=== PATIENT | female | born 1945 | race Caucasian/White ===

== ENCOUNTER 2020-07-27 06:49 | Day surgery (SDC) | payer MEDICARE, OTHER ==
[2020-07-27] MEDS ORDERED: BETADINE 5% OPHTHALMIC 30 ML OP ONE (07:00)
[2020-07-27] MEDS ORDERED: cefUROXime sodium 0.005 GM in Sodium Chloride Flush 30 ML*** 0.5 ML IJ SCH (07:00)
[2020-07-27] MEDS ORDERED: TETRACAINE 0.5% STERI-UNIT SOL OP ONE ×2 (07:00)
[2020-07-27] MEDS ORDERED: NON-FORMULARY ITEM OP ONE (07:00)
[2020-07-27] MEDS ORDERED: Ak-Dilate OPHTHALMIC*** 1.065 ML, Cyclogyl 1% OPHTH SOL 5 ML 1.065 ML, GATIFLOXACIN 0.5... OP ONE ×4 (07:00)
[2020-07-27] MEDS ORDERED: Lactated Ringers 1,000 ML IV SCH (07:00)
[2020-07-27] MEDS ORDERED: Lactated Ringers 1,000 ML IV ONE (07:18)
[2020-07-27 07:37] VITALS: O2SAT 96
[2020-07-27] MEDS ORDERED: Zofran 4 MG/2 ML VIAL IV PRN (09:00)
[2020-07-27] MEDS ORDERED: ACETAZOLAMIDE 250 MG TABLET PO ONE (09:00)
[2020-07-27 09:58] VITALS: PULSE 63
[2020-07-27] MEDS ORDERED: Epinephrine Preservative Free 1 MG/ML INTRAOP ONE (10:00)
[2020-07-27] MEDS ORDERED: LIDOCAINE HCL 1% 50 MG/5 ML VL PF IJ ONE (10:00)
[2020-07-27 10:17] VITALS: BP 126/64
== END 2020-07-27 10:32 | disposition home or self-care (01) ==
LOC: SDC 06:49
PROVIDERS: ATTEND Ophthalmology
DX: H25.811 Combined forms of age-related cataract, right eye (principal); I10 Essential (primary) hypertension; E78.00 Pure hypercholesterolemia, unspecified; F41.9 Anxiety disorder, unspecified; Z79.899 Other long term (current) drug therapy
CPT/HCPCS: 99100; C1780; J0171; J2001; A9270-GY

== ENCOUNTER 2022-04-18 11:27 | Observation (INO) | payer MEDICARE, OTHER ==
[2022-04-18 13:32] LABS: Hematocrit 42.3 % (35-47); Mean Cell Volume 87.6 fL (78-100); Mean Corpuscular Hgb Concent. 33.1 g/dL (32-36); Mean Platelet Volume 8.2 fL (7.5-11.0); Platelet Count 193 x10^3/uL (150-450); Red Blood Count 4.83 x10^6/uL (4.1-5.4); Red Cell Distribution Width 12.4 % (11.5-14.0); White Blood Count 7.2 x10^3/uL (4.0-10.5)
[2022-04-18 13:47] LABS: ALBUMIN 4.3 g/dL (3.5-5.0); ANION GAP 11.9 MEQ/L (5-15); BILIRUBIN,TOTAL 1.3 mg/dL (0.2-1.3); Calcium 8.3 mg/dL (8.4-10.2); Creatinine 1 1.12 mg/dL (0.52-1.04); EST GLOMERULAR FILTRATION RATE 50.4 ML/MIN; Potassium 4.3 mmol/L (3.5-5.1); Total Protein 7.1 g/dL (6.3-8.2)
[2022-04-18 13:55] LABS: Erythrocyte Sedimentation Rate 21 mm/hr (0-20)
[2022-04-18] MEDS: Sodium Chloride 0.9% 1000 ML 1,000 ML IV SCH ×2 (14:04→21:53)
[2022-04-18 14:16] LABS: INFLUENZA A NEGATIVE (NEGATIVE); INFLUENZA B NEGATIVE (NEGATIVE); RESPIRATORY SYNCTIAL VIRUS NEGATIVE (Negative); SARS-CoV-2 Xpert Express NEGATIVE (NEGATIVE)
--- NOTE | 2022-04-18 15:39 | XRAY ---
Indication: Abdomen pain and loss of appetite. Multiple contiguous axial images obtained through the abdomen and pelvis prior to and following 80 cc Isovue 370 contrast as ordered. Comparison: October 06, 2011 Lung bases again demonstrates mild bibasilar subsegmental atelectasis/scarring. No infiltrate or effusion. Heart not enlarged with increasing small left posterior pericardial effusion/thickening. Noncontrasted images demonstrates new nonobstructing right renal punctate calculus and splenic calcified granuloma. No other visceral calcifications/calculi. Noncontrasted stomach and bowel loops nonobstructed. Enlarging descending duodenal diverticulum measuring 4.3 cm. There remains scattered descending and sigmoid diverticulosis more than before. Appendectomy, cholecystectomy, and hysterectomy. No free fluid/air. Postcontrast images demonstrates normal visceral enhancement and renal excretion. Remaining liver, pancreas, spleen, adrenal glands, kidneys, ureters, and bladder are unremarkable. Increasing mild scattered aortoiliac calcifications. No AAA or pathologic retroperitoneal lymphadenopathy. Osseous structures intact again with osteopenia and mild degenerative changes both hips. Again minimal double curvature scoliosis. No ventral or inguinal hernias. Impression: 1. New nonobstructing right renal punctate calculus and splenic calcified granuloma. 2. Increasing small pericardial effusion/thickening better evaluated with echocardiogram if clinically warranted. 3. Again chronic findings including duodenal diverticulum, colonic diverticulosis, arteriosclerotic disease, and chronic bony findings. 4. Remaining CT abdomen/pelvis with and without contrast exam is negative.
[2022-04-18] MEDS ORDERED: DENOSUMAB SQ SCH (17:30)
[2022-04-18] MEDS ORDERED: MORPHINE SULFATE 4 MG INJ IV PRN (17:42)
[2022-04-18] MEDS ORDERED: Zanaflex 4 MG PO SCH (18:00)
[2022-04-18] MEDS ORDERED: NON-FORMULARY ITEM PO SCH (18:00)
[2022-04-18] MEDS ORDERED: MORPHINE SULFATE 2 MG INJ IV PRN (19:37)
[2022-04-18] MEDS: Neurontin PO SCH (21:51)
[2022-04-18] MEDS: xanAX 0.5 MG PO SCH (21:51)
[2022-04-18] MEDS: NORVASC 5 MG PO SCH (21:51)
[2022-04-18] MEDS: COREG 12.5 MG PO SCH (21:52)
[2022-04-18] MEDS ORDERED: NON-FORMULARY ITEM (Carvedilol [Coreg] 25 MG Tablet) PO SCH (22:00)
[2022-04-19] MEDS: Sodium Chloride 0.9% 1000 ML 1,000 ML IV SCH ×2 (03:12→04:26)
[2022-04-19 07:32] VITALS: O2SAT 94
[2022-04-19] MEDS: Zocor 10MG PO SCH ×2 (09:34→09:35)
[2022-04-19] MEDS: Neurontin PO SCH (09:35)
[2022-04-19] MEDS: COREG 12.5 MG PO SCH (09:35)
[2022-04-19] MEDS: xanAX 0.5 MG PO SCH (09:35)
[2022-04-19] MEDS: NORVASC 5 MG PO SCH (09:36)
[2022-04-19] MEDS ORDERED: NON-FORMULARY ITEM (Lovastatin [Lovastatin] 20 MG Tablet) PO SCH (10:00)
[2022-04-19] MEDS ORDERED: NON-FORMULARY ITEM (Omeprazole [Omeprazole] 40 MG Capsule.Dr) PO SCH (10:00)
[2022-04-19] MEDS ORDERED: Protonix 40MG Tablet PO SCH (10:00)
[2022-04-19] MEDS ORDERED: NON-FORMULARY ITEM (Hydroxychloroquine Sulfate [Plaquenil] 200 MG Tablet) PO SCH (10:00)
--- NOTE | 2022-04-19 10:42 | XRAY ---
Indication: Pain. Hysterectomy. Two-dimensional transabdominal pelvic sonogram performed. Comparison: None Uterus and ovaries are surgically absent. No suspicious solid/cystic pelvic mass or free fluid.
[2022-04-19 12:14] VITALS: BP 121/60; PULSE 64
--- NOTE | 2022-04-19 13:01 | PCM.SSS ---
History of Present Illness - Chief Complaint Chief Complaint: ABDOMINAL PAIN for 3 days History of Present Illness: is a 77 year old female started having abdominal pain in left lower cole drant associated with nausea for 3 days - Review of Systems Constitutional: No Fever, No Chills Eyes: No Symptoms Ears, Nose, & Throat: No Symptoms Respiratory: No Cough, No Short Of Breath Cardiac: No Chest Pain, No Edema, No Syncope Abdominal/Gastrointestinal: Abdominal Pain, Nausea, No Vomiting, No Diarrhea Genitourinary Symptoms: No Dysuria Musculoskeletal: No Back Pain, No Neck Pain Skin: No Rash Neurological: No Dizziness, No Focal Weakness, No Sensory Changes Psychological: No Symptoms Endocrine: No Symptoms Hematologic/Lymphatic: No Symptoms Immunological/Allergic: No Symptoms Medications & Allergies Home Medications: Home Medication List ALPRAZolam [Xanax] 0.5 mg PO BID 07/14/20 [History Confirmed 04/18/22] Amlodipine Besylate [Norvasc] 5 mg PO BID 07/14/20 [History Confirmed 04/18/22] Denosumab 60 mg [Prolia 60 mg Injection] 60 mg SQ UD 07/14/20 [History Confirmed 04/18/22] Gabapentin [Neurontin ] 100 mg PO TID 07/14/20 [History Confirmed 04/18/22] Hydroxychloroquine Sulfate [Plaquenil] 200 mg PO DAILY 07/14/20 [History Confirmed 04/18/22] Lovastatin 10 mg PO DAILY 07/14/20 [History Confirmed 04/18/22] Omeprazole 40 mg PO DAILY 07/14/20 [History Confirmed 04/18/22] carvediloL [Coreg] 25 mg PO BID 07/14/20 [History Confirmed 04/18/22] ALPRAZolam 0.25 MG [xanAX 0.25 MG] 0.5 mg PO BID 04/18/22 [History Confirmed 04/18/22] Tizanidine HCl 4 mg [Zanaflex 4 MG] 4 mg PO DAILY 04/18/22 [History Confirmed 04/18/22] Dicyclomine HCl 20 mg [Bentyl 20 mg] 10 mg PO TID #30 tablet 04/19/22 [Rx] Psyllium Packet [Metamucil PACKET] 1 each PO DAILY #30 packet 04/19/22 [Rx] Allergies/Adverse Reactions: Allergies Allergy/AdvReac Type Severity Reaction Status Date / Time No Known Drug Allergies Allergy Verified 07/27/20 07:19 - Past Medical History Past Medical History: Yes Neurological History: No Pertinent History ENT History: Cataracts Cardiac History: High Cholesterol, Hypertension Respiratory History: No Pertinent History Endocrine Medical History: No Pertinent History Musculoskelatal History: Arthritis, Osteoarthritis, Osteoporosis GI Medical History: No Pertinent History History: No Pertinent History Pyscho-Social History: Anxiety Reproductive Disorders: No Pertinent History - Female History Are you now?: No - Past Surgical History Past Surgical History: Yes Neuro Surgical History: No Pertinent History Cardiac History: Cardiac Catheterization Respiratory Surgery: No Pertinent History GI Surgical History: Cholecystectomy Genitourinary Surgical Hx: No Pertinent History Musculskeletal Surgical Hx: No Pertinent History, Other Female Surgical History: Hysterectomy Other Surgical History: jaya in right wrist - Social History Smoking Status: Never smoker Exposure to second hand smoke: No Alcohol: Weekly Drug Use: none - Physical Exam Vital Signs: Vital Signs - 24 hr Temp Pulse Resp BP Pulse Ox 04/19/22 12:00 97.5 F 64 17 121/60 94 L 04/19/22 07:28 97.7 F 67 16 120/58 94 L 04/19/22 04:00 97.9 F 66 16 113/56 93 L 04/19/22 00:00 81 16 122/58 95 04/18/22 16:08 98.3 F 81 16 122/58 95 General Appearance: no apparent distress, alert Neurologic Exam: alert, oriented x 3, cooperative, normal mood/affect, nml cerebellar function, nml station & gait, sensation nml, No motor deficits Eye Exam: PERRL/EOMI, eyes nml inspection Ears, Nose, Throat Exam: normal ENT inspection, TMs normal, pharynx normal, m oist mucous membranes Neck Exam: normal inspection, non-tender, supple, full range of motion Respiratory Exam: normal breath sounds, lungs clear, No respiratory distress Cardiovascular Exam: regular rate/rhythm, normal heart sounds, normal peripheral pulses Gastrointestinal/Abdomen Exam: soft, normal bowel sounds, tenderness (LLQ), No mass Back Exam: normal inspection, normal range of motion, No CVA tenderness, No vertebral tenderness Extremity Exam: normal inspection, normal range of motion, pelvis stable Skin Exam: normal color, warm, dry, No rash Lymphatic Exam: No adenopathy Results - Labs Lab/Micro Results: Lab Results-Last 24 Hours 04/18/22 04/18/22 04/18/22 Range/Units 13:25 13:25 13:30 WBC 7.2 (4.0-10.5) x10^3/uL RBC 4.83 (4.1-5.4) x10^6/uL Hgb 14.0 (12.0-16.0) g/dL Hct 42.3 (35-47) % MCV 87.6 (78-100) fL MCH 29.0 (26-32) pg MCHC 33.1 (32-36) g/dL RDW 12.4 (11.5-14.0) % Plt Count 193 (150-450) x10^3/uL MPV 8.2 (7.5-11.0) fL ESR 21 H (0-20) mm/hr Sodium 135 L (137-145) mmol/L Potassium 4.3 (3.5-5.1) mmol/L Chloride 105 (98-107) mmol/L Carbon Dioxide 22 (22-30) mmol/L Anion Gap 11.9 (5-15) MEQ/L BUN 30 H (7-17) mg/dL Creatinine 1.12 H (0.52-1.04) mg/dL Estimated GFR 50.4 ML/MIN Glucose 88 (74-106) mg/dL Calcium 8.3 L (8.4-10.2) mg/dL Total Bilirubin 1.30 (0.2-1.3) mg/dL AST 20 (14-36) U/L ALT 17 (0-35) U/L Alkaline Phosphatase 69 (38-126) U/L Serum Total Protein 7.1 (6.3-8.2) g/dL Albumin 4.3 (3.5-5.0) g/dL Amylase 56 (30-110) U/L Lipase 47 (23-300) U/L Influenza Type A Ag NEGATIVE (NEGATIVE) Influenza Type B Ag NEGATIVE (NEGATIVE) RSV (PCR) NEGATIVE (Negative) SARS-CoV-2 (PCR) NEGATIVE (NEGATIVE) - Radiology Impressions Radiology Exams & Impressions: Radiology Procedures Category Date Time Status ABDOMEN AND PELVIS W&WO CONTRA [CT] Urgent Exams 04/18/22 13:15 Completed PELVIC [US] Stat Exams 04/19/22 16:[address]/ABDOMEN AND PELVIS W&WO CONTRA Indication: Abdomen pain and loss of appetite. Multiple contiguous axial images obtained through the abdomen and pelvis prior to and following 80 cc Isovue 370 contrast as ordered. Comparison: October 06, 2011 Lung bases again demonstrates mild bibasilar subsegmental atelectasis/scarring. No infiltrate or effusion. Heart not enlarged with increasing small left posterior pericardial effusion/thickening. Noncontrasted images demonstrates new nonobstructing right renal punctate calculus and splenic calcified granuloma. No other visceral calcifications/calculi. Noncontrasted stomach and bowel loops nonobstructed. Enlarging descending duodenal diverticulum measuring 4.3 cm. There remains scattered descending and sigmoid diverticulosis more than before. Appendectomy, cholecystectomy, and hysterectomy. No free fluid/air. Postcontrast images demonstrates normal visceral enhancement and renal excretion. Remaining liver, pancreas, spleen, adrenal glands, kidneys, ureters, and bladder are unremarkable. Increasing mild scattered aortoiliac calcifications. No AAA or pathologic retroperitoneal lymphadenopathy. Osseous structures intact again with osteopenia and mild degenerative changes both hips. Again minimal double curvature scoliosis. No ventral or inguinal hernias. Impression: 1. New nonobstructing right renal punctate calculus and splenic calcified granuloma. 2. Increasing small pericardial effusion/thickening better evaluated with echocardiogram if clinically warranted. 3. Again chronic findings including duodenal diverticulum, colonic diverticulosis, arteriosclerotic disease, and chronic bony findings. 4. Remaining CT abdomen/pelvis with and without contrast exam is negative. Assessment/Plan (1) Abdominal pain Current Visit: Yes Status: Resolved Qualifiers: Abdominal location: left lower quadrant Qualified Code(s): R10.32 - Left lower quadrant pain Code(s): R10.9 - UNSPECIFIED ABDOMINAL PAIN (2) Diverticular disease of colon Current Visit: Yes Status: Acute Code(s): K57.30 - DVRTCLOS OF LG INT W/O PERFORATION OR ABSCESS W/O BLEEDING (3) Hypertension Current Visit: Yes Status: Acute Code(s): I10 - ESSENTIAL (PRIMARY) HYPERTENSION Hospital Summary - Hospital Course Hospital Course: Chief Complaint Diagnosis ABDOMINAL PAIN Allergies Allergy/AdvReac Type Severity Reaction Status Date / Time No Known Drug Allergies Allergy Verified 07/27/20 07:19 Vital Signs (Last 24 hours) Temp Pulse Resp BP Pulse Ox 04/19/22 12:00 97.5 F 64 17 121/60 94 L 04/19/22 07:28 97.7 F 67 16 120/58 94 L 04/19/22 04:00 97.9 F 66 16 113/56 93 L 04/19/22 00:00 81 16 122/58 95 04/18/22 16:08 98.3 F 81 16 122/58 95 Home Medications Medication Instructions Recorded Confirmed Last Taken Type ALPRAZolam 0.25 MG [xanAX 0.25 0.5 mg PO BID 04/18/22 04/18/22 04/17/22 History MG] Tizanidine HCl 4 mg [Zanaflex 4 4 mg PO DAILY 04/18/22 04/18/22 04/17/22 History MG] Dicyclomine HCl 20 mg [Bentyl 10 mg PO TID #30 tablet 04/19/22 Unknown Rx 20 mg] Psyllium Packet [Metamucil 1 each PO DAILY #30 packet 04/19/22 Unknown Rx PACKET] Current Medications Generic Name Dose Route Start Last Admin Trade Name Francisco PRN Reason Stop Dose Admin Alprazolam 0.5 mg 04/18/22 22:00 04/19/22 09:35 Alprazolam 0.5 Mg Tablet PO 05/18/22 21:59 0.5 mg BID JERALD Administration Amlodipine Besylate 5 mg 04/18/22 22:00 04/19/22 09:36 Amlodipine Besylate 5 Mg Tablet PO 05/18/22 21:59 5 mg BID JERALD Administration Carvedilol 25 mg 04/18/22 22:00 04/19/22 09:35 Carvedilol 12.5 Mg Tablet PO 05/18/22 21:59 25 mg BID JERALD Administration Gabapentin 100 mg 04/18/22 22:00 04/19/22 09:35 Gabapentin 100 Mg Capsule PO 05/18/22 21:59 100 mg TID JERALD Administration Sodium Chloride 1,000 mls @ 150 mls/hr 04/18/22 13:30 04/19/22 04:26 Sodium Chloride 0.9% 1000 Ml IV 05/18/22 13:29 150 mls/hr .[id number] JERALD Administration Morphine Sulfate 2 mg 04/18/22 19:37 04/18/22 19:44 Morphine Sulfate 2 Mg/Ml Inj IV 04/23/22 19:36 2 mg Q4H PRN PRN Administration PAIN Hydroxychloroquine 1 each 04/19/22 22:00 200mg Tablet PO 05/18/22 17:59 HS JERALD Pantoprazole Sodium 40 mg 04/19/22 10:00 04/19/22 09:35 Protonix (Pantoprazole) 40 Mg Tablet PO 05/19/22 09:59 40 mg DAILY JERALD Administration Simvastatin 5 mg 04/18/22 18:00 04/19/22 09:35 Simvastatin 10 Mg Tablet PO 05/18/22 17:59 5 mg DAILY JERALD Administration Tizanidine HCl 4 mg 04/19/22 22:00 Tizanidine Hcl 4 Mg Tablet PO 05/18/22 17:59 HS JERALD Discontinued Medications Generic Name Dose Route Start Last Admin Trade Name Freq PRN Reason Stop Dose Admin Hydroxychloroquine 1 each 04/18/22 18:00 04/18/22 18:23 200mg Tablet PO 05/18/22 17:59 Not Given DAILY JERALD Tizanidine HCl 4 mg 04/18/22 18:00 04/19/22 09:34 Tizanidine Hcl 4 Mg Tablet PO 05/18/22 17:59 Not Given DAILY JERALD Intake & Output (Last 24 hours) 04/17/22 04/18/22 04/19/22 04/20/22 11:59 11:59 11:59 11:59 Intake Total 3837 Output Total 700 Balance 3137 Weight 67.9 kg Laboratory Results (Last 24 hours) 04/18/22 04/18/22 04/18/22 13:30 13:25 13:25 WBC 7.2 RBC 4.83 Hgb 14.0 Hct 42.3 MCV 87.6 MCH 29.0 MCHC 33.1 RDW 12.4 Plt Count 193 MPV 8.2 ESR 21 H Sodium 135 L Potassium 4.3 Chloride 105 Carbon Dioxide 22 Anion Gap 11.9 BUN 30 H Creatinine 1.12 H Estimated GFR 50.4 Glucose 88 Calcium 8.3 L Total Bilirubin 1.30 AST 20 ALT 17 Alkaline Phosphatase 69 Serum Total Protein 7.1 Albumin 4.3 Amylase 56 Lipase 47 Influenza Type A Ag NEGATIVE Influenza Type B Ag NEGATIVE RSV (PCR) NEGATIVE SARS-CoV-2 (PCR) NEGATIVE Orders (Last 24 hours) Category Date Time Status Miscellaneous Nursing Order Q12H Care 04/18/22 17:43 Active Telemetry q6h Care 04/18/22 20:00 Active Printing Assistant/Discharge Plan ROUTINE Cons 04/18/22 13:27 Active House Regular Diet Diet 04/18/22 Dinner Active Discharge Routine Discharge 04/19/22 Ordered ABDOMEN AND PELVIS W&WO CONTRA [CT] Urgent Exams 04/18/22 13:15 Completed PELVIC [US] Stat Exams 04/19/22 16:52 Completed AMYLASE Urgent Lab 04/18/22 13:25 Completed CBC Urgent Lab 04/18/22 13:25 Completed CMP Urgent Lab 04/18/22 13:25 Completed COVID/FLU/RSV Panel Stat Lab 04/18/22 13:30 Completed Erythrocyte Sedimentation Rate Urgent Lab 04/18/22 13:25 Completed LIPASE Urgent Lab 04/18/22 13:25 Completed ALPRAZolam 0.5 MG [xanAX 0.5 MG] Med 04/18/22 22:00 Active 0.5 mg PO BID Amlodipine Besylate 5 mg [Norvasc 5 mg] Med 04/18/22 22:00 Active 5 mg PO BID Carvedilol 12.5 mg [Coreg 12.5 mg] Med 04/18/22 22:00 Active 25 mg PO BID Gabapentin [Neurontin ] Med 04/18/22 22:00 Active 100 mg PO TID Morphine Sulfate 2 mg Inj Med 04/18/22 19:37 Active 2 mg IV Q4H PRN PRN NaCl 0.9% 1000 ml [Sodium Chloride 0.9% 1000 ML] 1,000 Med 04/18/22 13:30 Active ml IV 150 mls/hr Non-Formulary Drug [Non-Formulary Item] Med 04/18/22 18:00 Discontinued 1 each PO DAILY Non-Formulary Drug [Non-Formulary Item] Med 04/19/22 22:00 Active 1 each PO HS PANTOPRAZOLE 40 mg Tablet [Protonix 40MG Tablet] Med 04/19/22 10:00 Active 40 mg PO DAILY Simvastatin 10 mg [Zocor 10MG] Med 04/18/22 18:00 Active 5 mg PO DAILY Tizanidine HCl 4 mg [Zanaflex 4 MG] Med 04/18/22 18:00 Discontinued 4 mg PO DAILY Tizanidine HCl 4 mg [Zanaflex 4 MG] Med 04/19/22 22:00 Active 4 mg PO HS Patient Care Notes (Last 24 hours) 04/19/22 09:53 Nursing Note by [place] DID NOT ADMINISTER 1000 SCHEDULED DOSE OF ZANAFLEX OR HYDROXYCHLOROQUINE DUE TO PT STATING SHE TAKES THESE MEDICATIONS AT BEDTIME. NOTIFIED PHARMACY TO CHANGE TIMES. Initialized on 04/19/22 09:53 - END OF NOTE 04/18/22 17:38 Nursing Note by Debbie Renee This nurse called Dr Waite to request pain medication for pt due to pt request. Dr Sofya Bautista orders 2 mg IV Morphine Q4 PRN, and to hold Hydroxychloroquine at this time Initialized on 04/18/22 17:38 - END OF NOTE - Vitals & Intake/Output Vital Signs: Vital Signs Temperature 97.5 F 04/19/22 12:00 Pulse Rate 64 04/19/22 12:00 Respiratory Rate 17 04/19/22 12:00 Blood Pressure 121/60 04/19/22 12:00 O2 Sat by Pulse Oximetry 94 L 04/19/22 12:00 Intake & Output: Intake & Output 04/17/22 04/18/22 04/19/22 04/20/22 11:59 11:59 11:59 11:59 Intake Total 3837 Output Total 700 Balance 3137 Weight 67.9 kg - Lab Result Diagrams: 04/18/22 13:25 04/18/22 13:25 Lab Results-Last 24 Hrs: Lab Results-Last 24 Hours 04/18/22 04/18/22 04/18/22 Range/Units 13:25 13:25 13:30 WBC 7.2 (4.0-10.5) x10^3/uL RBC 4.83 (4.1-5.4) x10^6/uL Hgb 14.0 (12.0-16.0) g/dL Hct 42.3 (35-47) % MCV 87.6 (78-100) fL MCH 29.0 (26-32) pg MCHC 33.1 (32-36) g/dL RDW 12.4 (11.5-14.0) % Plt Count 193 (150-450) x10^3/uL MPV 8.2 (7.5-11.0) fL ESR 21 H (0-20) mm/hr Sodium 135 L (137-145) mmol/L Potassium 4.3 (3.5-5.1) mmol/L Chloride 105 (98-107) mmol/L Carbon Dioxide 22 (22-30) mmol/L Anion Gap 11.9 (5-15) MEQ/L BUN 30 H (7-17) mg/dL Creatinine 1.12 H (0.52-1.04) mg/dL Estimated GFR 50.4 ML/MIN Glucose 88 (74-106) mg/dL Calcium 8.3 L (8.4-10.2) mg/dL Total Bilirubin 1.30 (0.2-1.3) mg/dL AST 20 (14-36) U/L ALT 17 (0-35) U/L Alkaline Phosphatase 69 (38-126) U/L Serum Total Protein 7.1 (6.3-8.2) g/dL Albumin 4.3 (3.5-5.0) g/dL Amylase 56 (30-110) U/L Lipase 47 (23-300) U/L Influenza Type A Ag NEGATIVE (NEGATIVE) Influenza Type B Ag NEGATIVE (NEGATIVE) RSV (PCR) NEGATIVE (Negative) SARS-CoV-2 (PCR) NEGATIVE (NEGATIVE) - Radiology Exams Ordered Rad Exams-Entire Visit: Radiology Procedures Category Date Time Status ABDOMEN AND PELVIS W&WO CONTRA [CT] Urgent Exams 04/18/22 13:15 Completed PELVIC [US] Stat Exams 04/19/22 16:52 Completed - Discharge Discharge Date: 04/19/22 Disposition: Home, Self-Care Condition: Stable Prescriptions: New Dicyclomine HCl 20 mg [Bentyl 20 mg] 10 mg PO TID #30 tablet Psyllium Packet [Metamucil PACKET] 1 each PO DAILY #30 packet Continue Lovastatin 10 mg PO DAILY Hydroxychloroquine Sulfate [Plaquenil] 200 mg PO DAILY Amlodipine Besylate [Norvasc] 5 mg PO BID Gabapentin [Neurontin ] 100 mg PO TID carvediloL [Coreg] 25 mg PO BID Omeprazole 40 mg PO DAILY ALPRAZolam [Xanax] 0.5 mg PO BID Denosumab 60 mg [Prolia 60 mg Injection] 60 mg SQ UD ALPRAZolam 0.25 MG [xanAX 0.25 MG] 0.5 mg PO BID Tizanidine HCl 4 mg [Zanaflex 4 MG] 4 mg PO DAILY Instructions: Diverticulosis (DC) Follow up with: BLUE DEVINE MD [Primary Care Provider] - 04/24/22 1:30 pm Forms: Discharge Instructions
[2022-04-19] MEDS ORDERED: Zanaflex 4 MG PO SCH (22:00)
[2022-04-19] MEDS ORDERED: NON-FORMULARY ITEM PO SCH (22:00)
== END 2022-04-19 13:54 | disposition home or self-care (01) ==
LOC: MED SURG 11:54
PROVIDERS: ADMIT General Practice; ATTEND General Practice
DX: K57.30 Diverticulosis of large intestine without perforation or abscess without bleeding (principal); R10.32 Left lower quadrant pain; I10 Essential (primary) hypertension; E78.5 Hyperlipidemia, unspecified; Z79.899 Other long term (current) drug therapy; Z20.828 Contact with and (suspected) exposure to other viral communicable diseases
CPT/HCPCS: 0241U; 36415; 74178; 76856; 80053; 82150; 83690; 85027; 85652; 93268; G0378; J2270; A9270-GY

== ENCOUNTER 2022-05-15 15:45 | Observation (INO) | payer MEDICARE, OTHER ==
[2022-05-15 16:35] LABS: Absolute Neutrophil Ct (ANC) 3.94 x10^3/uL (1.4-6.9); BASOPHIL % 0.2 % (0.0-0.4); Basophil (Absolute #) 0.01 x10^3/uL (0-0.4); Eosinophil % 0.3 % (0.00-5.0); Eosinophil (Absolute #) 0.02 x10^3/uL (0-0.5); Hematocrit 43.6 % (35-47); Hemoglobin 14.4 g/dL (12.0-16.0); IMMATURE GRAN # 0.02 x10^3u/L (0.00-0.03); IMMATURE GRAN % 0.3 % (0.00-0.4); Lymphocyte (Absolute #) 1.55 x10^3/uL (1.0-4.6); Lymphocytes % 25.6 % (24.0-44.0); Mean Corpuscular Hemoglobin 29.4 pg (26-32); Mean Platelet Volume 8.4 fL (7.5-11.0); Monocyte (Absolute #) 0.51 x10^3/uL (0.0-1.3); Monocytes % 8.4 % (0.0-12.0); Neutrophil % 65.2 % (36.0-66.0); Platelet Count 180 x10^3/uL (150-450); Red Cell Distribution Width 13.5 % (11.5-14.0); White Blood Count 6.1 x10^3/uL (4.0-10.5)
[2022-05-15 16:49] LABS: ALBUMIN 4.2 g/dL (3.5-5.0); ALKALINE PHOSPHATASE 62 U/L (38-126); ANION GAP 15.4 MEQ/L (5-15); BLOOD UREA NITROGEN 11 mg/dL (7-17); CHLORIDE 108 mmol/L (98-107); Calcium 8.3 mg/dL (8.4-10.2); Carbon Dioxide 21 mmol/L (22-30); Creatinine 1 0.82 mg/dL (0.52-1.04); EST GLOMERULAR FILTRATION RATE > 60.0 ML/MIN; Glucose 83 mg/dL (74-106); Potassium 3.7 mmol/L (3.5-5.1); SGOT/AST 24 U/L (14-36); SGPT/ALT 20 U/L (0-35); SODIUM 140 mmol/L (137-145); Total Protein 6.9 g/dL (6.3-8.2)
[2022-05-15 17:09] LABS: INFLUENZA A NEGATIVE (NEGATIVE); INFLUENZA B NEGATIVE (NEGATIVE); RESPIRATORY SYNCTIAL VIRUS NEGATIVE (Negative); SARS-CoV-2 Xpert Express NEGATIVE (NEGATIVE)
[2022-05-15] MEDS: Metamucil PACKET PO SCH (17:29)
--- NOTE | 2022-05-15 17:49 | PCM.HP.ADD ---
Addendum to History & Physical - History & Physical Addendum Addendum to History & Physical: This certifies that the History & Physical in the electronic chart reflects the current health status of the patient. If there are changes in the H&P these changes/exceptions are listed as follows.
[2022-05-15] MEDS: Lactated Ringers 1,000 ML IV SCH (17:56)
[2022-05-15] MEDS: Pepcid 20 MG VIAL IV SCH ×2 (17:57→21:35)
[2022-05-15] MEDS ORDERED: NON-FORMULARY ITEM PO SCH ×2 (18:00→22:00)
[2022-05-15] MEDS ORDERED: Zocor 10MG PO SCH ×2 (18:00→22:00)
[2022-05-15] MEDS: PROTONIX 40 MG IV*** 80 MG in Sodium Chloride 0.9% 500 ML 500 ML IV SCH (18:01)
[2022-05-15] MEDS: BENTYL 20 MG PO SCH (21:32)
[2022-05-15] MEDS: COREG 12.5 MG PO SCH (21:33)
[2022-05-15] MEDS: NORVASC 5 MG PO SCH (21:34)
[2022-05-15] MEDS: Neurontin PO SCH (21:34)
[2022-05-15] MEDS: Zanaflex 4 MG PO SCH (21:35)
[2022-05-15] MEDS: xanAX 0.5 MG PO SCH (21:35)
[2022-05-15] MEDS ORDERED: NON-FORMULARY ITEM (Carvedilol [Coreg] 25 MG Tablet) PO SCH (22:00)
[2022-05-16] MEDS: Lactated Ringers 1,000 ML IV SCH ×3 (01:12→19:42)
[2022-05-16] MEDS: PROTONIX 40 MG IV*** 80 MG in Sodium Chloride 0.9% 500 ML 500 ML IV SCH ×2 (03:48→15:39)
[2022-05-16] MEDS: BENTYL 20 MG PO SCH ×3 (09:23→21:21)
[2022-05-16] MEDS: Pepcid 20 MG VIAL IV SCH ×2 (09:23→21:21)
[2022-05-16] MEDS: COREG 12.5 MG PO SCH ×2 (09:23→21:22)
[2022-05-16] MEDS: Neurontin PO SCH ×3 (09:24→21:22)
[2022-05-16] MEDS: xanAX 0.5 MG PO SCH ×2 (09:25→21:22)
[2022-05-16] MEDS: NORVASC 5 MG PO SCH ×2 (09:25→21:19)
[2022-05-16] MEDS: Metamucil PACKET PO SCH (09:25)
[2022-05-16] MEDS ORDERED: NON-FORMULARY ITEM (Lovastatin [Lovastatin] 20 MG Tablet) PO SCH (10:00)
[2022-05-16] MEDS ORDERED: NON-FORMULARY ITEM (Psyllium Packet*** [Metamucil Packet***] 1 PKT Packet) PO SCH (10:00)
[2022-05-16] MEDS ORDERED: NON-FORMULARY ITEM (Hydroxychloroquine Sulfate [Plaquenil] 200 MG Tablet) PO SCH (10:00)
--- NOTE | 2022-05-16 12:39 | PCM.NOTE ---
Date and Time: 05/16/22 1238 Subjective Assessment: stomach pain little better - Review of Systems Constitutional: No Fever, No Chills Eyes: No Symptoms Ears, Nose, & Throat: No Symptoms Respiratory: No Cough, No Short Of Breath Cardiac: No Chest Pain, No Edema, No Syncope Abdominal/Gastrointestinal: Abdominal Pain, No Nausea, No Vomiting, No Diarrhea Genitourinary Symptoms: No Dysuria Musculoskeletal: No Back Pain, No Neck Pain Skin: No Rash Neurological: No Dizziness, No Focal Weakness, No Sensory Changes Psychological: No Symptoms Endocrine: No Symptoms Hematologic/Lymphatic: No Symptoms Immunological/Allergic: No Symptoms Objective Exam General Appearance: no apparent distress, alert Neurologic Exam: alert, oriented x 3, cooperative, normal mood/affect, nml cerebellar function, sensation nml, No motor deficits Skin Exam: normal color, warm, dry Eye Exam: PERRL, EOMI, eyes nml inspection Ears, Nose, Throat Exam: normal ENT inspection, pharynx normal, moist mucous membranes Neck Exam: normal inspection, non-tender, supple, full range of motion Respiratory Exam: normal breath sounds, lungs clear, No respiratory distress Cardiovascular Exam: regular rate/rhythm, normal heart sounds Gastrointestinal/Abdomen Exam: soft, No tenderness, No mass Extremity Exam: normal inspection, normal range of motion Back Exam: normal inspection, normal range of motion, No CVA tenderness, No vertebral tenderness Pelvic Exam: deferred Rectal Exam: deferred OBJECTIVE DATA Vital Signs: Vital Signs - 24 hr Temp Pulse Resp BP Pulse Ox 05/16/22 11:00 96.9 F 65 18 123/60 94 L 05/16/22 07:14 97.3 F 66 18 143/66 95 05/16/22 06:58 97.5 F 70 16 119/58 93 L 05/16/22 03:00 97.5 F 70 16 119/58 93 L 05/15/22 23:44 97.5 F 70 16 119/58 93 L 05/15/22 23:00 97.7 F 75 16 131/65 95 05/15/22 19:05 97.7 F 75 16 131/65 95 05/15/22 16:59 97.8 F 86 22 140/65 95 05/15/22 15:59 97.8 F 86 22 140/65 95 Pain Assessment - Last Documented Pain Intensity 2 Intake and Output: Intake & Output 05/14/22 05/15/22 05/16/22 05/17/22 11:59 11:59 11:59 11:59 Intake Total 600 Balance 600 Weight 61.6 kg Lab Results: Lab Results-Last 24 Hours 05/15/22 05/15/22 05/15/22 Range/Units 16:20 16:20 16:20 WBC 6.1 (4.0-10.5) x10^3/uL RBC 4.90 (4.1-5.4) x10^6/uL Hgb 14.4 (12.0-16.0) g/dL Hct 43.6 (35-47) % MCV 89.0 (78-100) fL MCH 29.4 (26-32) pg MCHC 33.0 (32-36) g/dL RDW 13.5 (11.5-14.0) % Plt Count 180 (150-450) x10^3/uL MPV 8.4 (7.5-11.0) fL Gran % 65.2 (36.0-66.0) % Immature Gran % (Auto) 0.3 (0.00-0.4) % Nucleat RBC Rel Count 0.0 (0.00-0.1) % Eos # (Auto) 0.02 (0-0.5) x10^3/uL Immature Gran # (Auto) 0.02 (0.00-0.03) x10^3u/L Absolute Lymphs (auto) 1.55 (1.0-4.6) x10^3/uL Absolute Monos (auto) 0.51 (0.0-1.3) x10^3/uL Absolute Nucleated RBC 0.00 (0.00-0.01) x10^3u/L Lymphocytes % 25.6 (24.0-44.0) % Monocytes % 8.4 (0.0-12.0) % Eosinophils % 0.3 (0.00-5.0) % Basophils % 0.2 (0.0-0.4) % Absolute Granulocytes 3.94 (1.4-6.9) x10^3/uL Basophils # 0.01 (0-0.4) x10^3/uL Sodium 140 (137-145) mmol/L Potassium 3.7 (3.5-5.1) mmol/L Chloride 108 H (98-107) mmol/L Carbon Dioxide 21 L (22-30) mmol/L Anion Gap 15.4 H (5-15) MEQ/L BUN 11 (7-17) mg/dL Creatinine 0.82 (0.52-1.04) mg/dL Estimated GFR > 60.0 ML/MIN Glucose 83 (74-106) mg/dL Calcium 8.3 L (8.4-10.2) mg/dL Total Bilirubin 0.90 (0.2-1.3) mg/dL AST 24 (14-36) U/L ALT 20 (0-35) U/L Alkaline Phosphatase 62 (38-126) U/L Serum Total Protein 6.9 (6.3-8.2) g/dL Albumin 4.2 (3.5-5.0) g/dL Influenza Type A Ag NEGATIVE (NEGATIVE) Influenza Type B Ag NEGATIVE (NEGATIVE) RSV (PCR) NEGATIVE (Negative) SARS-CoV-2 (PCR) NEGATIVE (NEGATIVE) Assessment/Plan (1) Acute gastric erosion Current Visit: Yes Status: Acute Assessment & Plan: Chief Complaint Diagnosis erosive gastritis/dehydration Allergies Allergy/AdvReac Type Severity Reaction Status Date / Time No Known Drug Allergies Allergy Verified 07/27/20 07:19 Vital Signs (Last 24 hours) Temp Pulse Resp BP Pulse Ox 05/16/22 11:00 96.9 F 65 18 123/60 94 L 05/16/22 07:14 97.3 F 66 18 143/66 95 05/16/22 06:58 97.5 F 70 16 119/58 93 L 05/16/22 03:00 97.5 F 70 16 119/58 93 L 05/15/22 23:44 97.5 F 70 16 119/58 93 L 05/15/22 23:00 97.7 F 75 16 131/65 95 05/15/22 19:05 97.7 F 75 16 131/65 95 05/15/22 16:59 97.8 F 86 22 140/65 95 05/15/22 15:59 97.8 F 86 22 140/65 95 Current Medications Generic Name Dose Route Start Last Admin Trade Name Freq PRN Reason Stop Dose Admin Alprazolam 0.5 mg 05/15/22 22:00 05/16/22 09:25 Alprazolam 0.5 Mg Tablet PO 06/14/22 21:59 0.5 mg BID JERALD Administration Amlodipine Besylate 5 mg 05/15/22 22:00 05/16/22 09:25 Amlodipine Besylate 5 Mg Tablet PO 06/14/22 21:59 5 mg BID JERALD Administration Carvedilol 25 mg 05/15/22 22:00 05/16/22 09:23 Carvedilol 12.5 Mg Tablet PO 06/14/22 21:59 25 mg BID JERALD Administration Dicyclomine HCl 10 mg 05/15/22 22:00 05/16/22 09:23 Dicyclomine Hcl 20 Mg Tablet PO 06/14/22 21:59 10 mg TID JERALD Administration Famotidine 20 mg 05/15/22 18:00 05/16/22 09:23 Famotidine 20 Mg/1 Vial IV 06/14/22 17:59 20 mg Q12HT JERALD Administration Gabapentin 100 mg 05/15/22 22:00 05/16/22 09:24 Gabapentin 100 Mg Capsule PO 06/14/22 21:59 100 mg TID JERALD Administration Pantoprazole Sodium 80 mg/ 500 mls @ 50 mls/hr 05/15/22 18:00 05/16/22 03:48 Sodium Chloride IV 06/14/22 17:59 50 ml/hr .Q10H JERALD 50 mls/hr Administration Lactated Ringer's 1,000 mls @ 120 mls/hr 05/15/22 17:30 05/16/22 10:37 Lactated Ringers IV 06/14/22 17:29 120 mls/hr .Q8H20M JERALD Administration Hydroxychloroquine 1 each 05/16/22 22:00 200mg Tablet PO 06/14/22 21:59 HS JERALD Psyllium Hydrophilic Mucilloid 1 pkt 05/15/22 18:00 05/16/22 09:25 Psyllium 1 Pkt Packet PO 06/14/22 17:59 Not Given DAILY JERALD Simvastatin 5 mg 05/16/22 22:00 Simvastatin 10 Mg Tablet PO 06/14/22 21:59 HS JERALD Tizanidine HCl 4 mg 05/15/22 22:00 05/15/22 21:35 Tizanidine Hcl 4 Mg Tablet PO 06/14/22 21:59 4 mg HS JERALD Administration Discontinued Medications Generic Name Dose Route Start Last Admin Trade Name Francisco PRN Reason Stop Dose Admin Non-Formulary Medication 200 mg 05/16/22 10:00 Hydroxychloroquine Sulfate [Plaquenil] PO 06/15/22 09:59 DAILY JERALD Hydoxychloroquine 1 each 05/15/22 18:00 05/15/22 18:35 200mg Tablet PO 06/14/22 17:59 Not Given DAILY JERALD Non-Formulary Medication 1 each 05/15/22 22:00 05/15/22 21:34 Non-Formulary Drug 1 Each Each PO 06/14/22 21:59 Not Given DAILY JERALD Simvastatin 5 mg 05/15/22 18:00 05/15/22 18:35 Simvastatin 10 Mg Tablet PO 06/14/22 17:59 Not Given DAILY JERALD Simvastatin 5 mg 05/15/22 22:00 05/15/22 21:35 Simvastatin 10 Mg Tablet PO 06/14/22 21:59 Not Given DAILY JERALD Intake & Output (Last 24 hours) 05/14/22 05/15/22 05/16/22 05/17/22 11:59 11:59 11:59 11:59 Intake Total 600 Balance 600 Weight 61.6 kg Laboratory Results (Last 24 hours) 05/15/22 05/15/22 05/15/22 16:20 16:20 16:20 WBC 6.1 RBC 4.90 Hgb 14.4 Hct 43.6 MCV 89.0 MCH 29.4 MCHC 33.0 RDW 13.5 Plt Count 180 MPV 8.4 Gran % 65.2 Immature Gran % (Auto) 0.3 Nucleat RBC Rel Count 0.0 Eos # (Auto) 0.02 Immature Gran # (Auto) 0.02 Absolute Lymphs (auto) 1.55 Absolute Monos (auto) 0.51 Absolute Nucleated RBC 0.00 Lymphocytes % 25.6 Monocytes % 8.4 Eosinophils % 0.3 Basophils % 0.2 Absolute Granulocytes 3.94 Basophils # 0.01 Sodium 140 Potassium 3.7 Chloride 108 H Carbon Dioxide 21 L Anion Gap 15.4 H BUN 11 Creatinine 0.82 Estimated GFR > 60.0 Glucose 83 Calcium 8.3 L Total Bilirubin 0.90 AST 24 ALT 20 Alkaline Phosphatase 62 Serum Total Protein 6.9 Albumin 4.2 Influenza Type A Ag NEGATIVE Influenza Type B Ag NEGATIVE RSV (PCR) NEGATIVE SARS-CoV-2 (PCR) NEGATIVE Orders (Last 24 hours) Category Date Time Status Miscellaneous Nursing Order ROUTINE Care 05/15/22 17:21 Active Observation [Place in Observation] ROUTINE Care 05/15/22 15:52 Active Inductor Tester/Discharge Plan ROUTINE Cons 05/15/22 17:25 Active Full Liquid Diet Diet 05/16/22 Lunch Active Nutritional Admission Screen ONCE Diet 05/15/22 17:25 Active CBC W DIFF Urgent Lab 05/15/22 16:20 Completed CMP Urgent Lab 05/15/22 16:20 Completed COVID/FLU/RSV Panel Stat Lab 05/15/22 16:20 Completed ALPRAZolam 0.5 MG [xanAX 0.5 MG] Med 05/15/22 22:00 Active 0.5 mg PO BID Amlodipine Besylate 5 mg [Norvasc 5 mg] Med 05/15/22 22:00 Active 5 mg PO BID Carvedilol 12.5 mg [Coreg 12.5 mg] Med 05/15/22 22:00 Active 25 mg PO BID Dicyclomine HCl 20 mg [Bentyl 20 mg] Med 05/15/22 22:00 Active 10 mg PO TID Famotidine 20 mg Vial [Pepcid 20 MG VIAL] Med 05/15/22 18:00 Active 20 mg IV Q12HT Gabapentin [Neurontin ] Med 05/15/22 22:00 Active 100 mg PO TID Hydroxychloroquine Sulfate [Plaquenil] Med 05/16/22 10:00 Discontinued 200 mg PO DAILY NaCl 0.9% 500 ml [Sodium Chloride 0.9% 500 ML] 500 ml Med 05/15/22 18:00 Active Pantoprazole 40 mg [Protonix 40 mg IV] 80 mg IV 50 mls/hr Non-Formulary Drug [Non-Formulary Item] Med 05/15/22 18:00 Discontinued 1 each PO DAILY Non-Formulary Drug [Non-Formulary Item] Med 05/15/22 22:00 Discontinued 1 each PO DAILY Non-Formulary Drug [Non-Formulary Item] Med 05/16/22 22:00 Active 1 each PO HS Psyllium Packet [Metamucil PACKET] Med 05/15/22 18:00 Active 1 pkt PO DAILY Ringers Solution,Lactated [Lactated Ringers] 1,000 ml Med 05/15/22 17:30 Active IV 120 mls/hr Simvastatin 10 mg [Zocor 10MG] Med 05/15/22 18:00 Discontinued 5 mg PO DAILY Simvastatin 10 mg [Zocor 10MG] Med 05/15/22 22:00 Discontinued 5 mg PO DAILY Simvastatin 10 mg [Zocor 10MG] Med 05/16/22 22:00 Active 5 mg PO HS Tizanidine HCl 4 mg [Zanaflex 4 MG] Med 05/15/22 22:00 Active [address] Screen per Nursing Assess ONCE ST 05/15/22 17:25 Active Patient Care Notes (Last 24 hours) 05/16/22 12:07 Nursing Note by Debbie Renee this nurse rounded with Dr Aranda, He orders pt to remain on the protonix drip for 24 more hours and advance diet to full liquids. He orders to hold metamucil packet and Hydroxychloroquin at this time Initialized on 05/16/22 12:07 - END OF NOTE Code(s): K25.3 - ACUTE GASTRIC ULCER WITHOUT HEMORRHAGE OR PERFORATION (2) Gastric erosion determined by endoscopy Current Visit: Yes Status: Acute Code(s): K25.9 - GASTRIC ULCER, UNSP ACUTE OR CHRONIC, W/O HEMOR OR PERF
[2022-05-16] MEDS: Zanaflex 4 MG PO SCH (21:21)
[2022-05-16] MEDS ORDERED: Zocor 10MG PO SCH (22:00)
[2022-05-16] MEDS ORDERED: NON-FORMULARY ITEM PO SCH (22:00)
[2022-05-17] MEDS: PROTONIX 40 MG IV*** 80 MG in Sodium Chloride 0.9% 500 ML 500 ML IV SCH (02:24)
[2022-05-17] MEDS: Lactated Ringers 1,000 ML IV SCH ×2 (02:25→10:49)
[2022-05-17 07:15] VITALS: O2SAT 95
[2022-05-17] MEDS: NORVASC 5 MG PO SCH (08:59)
[2022-05-17] MEDS: BENTYL 20 MG PO SCH ×2 (08:59→15:55)
[2022-05-17] MEDS: COREG 12.5 MG PO SCH (08:59)
[2022-05-17] MEDS: xanAX 0.5 MG PO SCH (08:59)
[2022-05-17] MEDS: Pepcid 20 MG VIAL IV SCH (09:00)
[2022-05-17] MEDS: Neurontin PO SCH ×2 (09:00→15:56)
[2022-05-17] MEDS: Metamucil PACKET PO SCH (09:16)
[2022-05-17 16:36] VITALS: BP 132/63; PULSE 63
--- NOTE | 2022-05-17 17:18 | PCM.DS ---
Discharge Summary Date of Admission: 05/15/22 15:52 Admitting Physician: BLUE DEVINE Primary Care Provider: BLUE DEVINE Allergies Allergies No Known Drug Allergies Allergy (Verified 07/27/20 07:19) Hospital Summary - Hospital Course Hospital Course: Chief Complaint Diagnosis erosive gastritis/dehydration Allergies Allergy/AdvReac Type Severity Reaction Status Date / Time No Known Drug Allergies Allergy Verified 07/27/20 07:19 Vital Signs (Last 24 hours) Temp Pulse Resp BP Pulse Ox 05/17/22 15:00 97.8 F 63 16 132/63 95 05/17/22 11:00 97.8 F 77 16 120/56 95 05/17/22 07:00 97.9 F 60 16 130/60 95 05/17/22 03:00 97.9 F 65 17 103/53 94 L 05/16/22 23:00 97.5 F 60 17 136/63 95 05/16/22 19:00 98.3 F 63 17 142/60 94 L Home Medications Medication Instructions Recorded Confirmed Last Taken Type Dicyclomine HCl 20 mg [Bentyl 10 mg PO TID #30 tablet 05/17/22 Unknown Rx 20 mg] Famotidine 20 mg [Pepcid 20 20 mg PO BID 30 Days #60 tablet 05/17/22 Unknown Rx MG] PANTOPRAZOLE 40 mg Tablet 40 mg PO QAM 30 Days #30 tab 05/17/22 Unknown Rx [Protonix 40MG Tablet] Sucralfate 1 gm [Carafate 1 1 g PO BID 30 Days #60 tablet 05/17/22 Unknown Rx GM] Current Medications Generic Name Dose Route Start Last Admin Trade Name Freq PRN Reason Stop Dose Admin Alprazolam 0.5 mg 05/15/22 22:00 05/17/22 08:59 Alprazolam 0.5 Mg Tablet PO 06/14/22 21:59 0.5 mg BID JERALD Administration Amlodipine Besylate 5 mg 05/15/22 22:00 05/17/22 08:59 Amlodipine Besylate 5 Mg Tablet PO 06/14/22 21:59 5 mg BID JERALD Administration Carvedilol 25 mg 05/15/22 22:00 05/17/22 08:59 Carvedilol 12.5 Mg Tablet PO 06/14/22 21:59 25 mg BID JERALD Administration Dicyclomine HCl 10 mg 05/15/22 22:00 05/17/22 15:55 Dicyclomine Hcl 20 Mg Tablet PO 06/14/22 21:59 10 mg TID JERALD Administration Famotidine 20 mg 05/15/22 18:00 05/17/22 09:00 Famotidine 20 Mg/1 Vial IV 06/14/22 17:59 20 mg Q12HT JERALD Administration Gabapentin 100 mg 05/15/22 22:00 05/17/22 15:56 Gabapentin 100 Mg Capsule PO 06/14/22 21:59 100 mg TID JERALD Administration Pantoprazole Sodium 80 mg/ 500 mls @ 50 mls/hr 05/15/22 18:00 05/17/22 02:24 Sodium Chloride IV 06/14/22 17:59 50 ml/hr .Q10H JERALD 50 mls/hr Administration Lactated Ringer's 1,000 mls @ 120 mls/hr 05/15/22 17:30 05/17/22 10:49 Lactated Ringers IV 06/14/22 17:29 120 mls/hr .Q8H20M JERALD Administration Hydroxychloroquine 1 each 05/16/22 22:00 05/16/22 22:04 200mg Tablet PO 06/14/22 21:59 Not Given HS JERALD Psyllium Hydrophilic Mucilloid 1 pkt 05/15/22 18:00 05/17/22 09:16 Psyllium 1 Pkt Packet PO 06/14/22 17:59 Not Given DAILY JERALD Simvastatin 5 mg 05/16/22 22:00 05/16/22 22:04 Simvastatin 10 Mg Tablet PO 06/14/22 21:59 Not Given HS JERALD Tizanidine HCl 4 mg 05/15/22 22:00 05/16/22 21:21 Tizanidine Hcl 4 Mg Tablet PO 06/14/22 21:59 4 mg HS JERALD Administration Discontinued Medications Generic Name Dose Route Start Last Admin Trade Name Freq PRN Reason Stop Dose Admin Non-Formulary Medication 200 mg 05/16/22 10:00 Hydroxychloroquine Sulfate [Plaquenil] PO 06/15/22 09:59 DAILY JERALD Hydoxychloroquine 1 each 05/15/22 18:00 05/15/22 18:35 200mg Tablet PO 06/14/22 17:59 Not Given DAILY JERALD Non-Formulary Medication 1 each 05/15/22 22:00 05/15/22 21:34 Non-Formulary Drug 1 Each Each PO 06/14/22 21:59 Not Given DAILY JERALD Simvastatin 5 mg 05/15/22 18:00 05/15/22 18:35 Simvastatin 10 Mg Tablet PO 06/14/22 17:59 Not Given DAILY JERALD Simvastatin 5 mg 05/15/22 22:00 05/15/22 21:35 Simvastatin 10 Mg Tablet PO 06/14/22 21:59 Not Given DAILY JERALD Intake & Output (Last 24 hours) 05/15/22 05/16/22 05/17/22 05/18/22 11:59 11:59 11:59 11:59 Intake Total 600 6977 [id number] Output Total 2 Balance 600 6975 869 Weight 61.6 kg Orders (Last 24 hours) Category Date Time Status Discharge Routine Discharge 05/17/22 Ordered Non-Formulary Drug [Non-Formulary Item] Med 05/16/22 22:00 Hold 1 each PO HS Simvastatin 10 mg [Zocor 10MG] Med 05/16/22 22:00 Active 5 mg PO HS Patient Care Notes (Last 24 hours) 05/17/22 12:27 Nursing Note by Skylar Ocampo Rounded with Dr Devine. Said patient could go home in the AM to just give him a call with updates and he would give the order. Initialized on 05/17/22 12:27 - END OF NOTE 05/17/22 10:04 Case Management Note by Aleah Joshua S/W PATIENT- SHE CONTINUES TO DENY ANY NEW NEEDS AT TIME OF DC. SHE PLANS TO RETURN HOME TO HER F WITH HER SPOUSE. Initialized on 05/17/22 10:04 - END OF NOTE - Vitals & Intake/Output Vital Signs: Vital Signs Temperature 97.8 F 05/17/22 15:00 Pulse Rate 63 05/17/22 15:00 Respiratory Rate 16 05/17/22 15:00 Blood Pressure 132/63 05/17/22 15:00 O2 Sat by Pulse Oximetry 95 05/17/22 15:00 Intake & Output: Intake & Output 05/15/22 05/16/22 05/17/22 03/09/23 11:59 11:59 11:59 11:59 Intake Total 600 6977 869 Output Total 2 Balance 600 6975 869 Weight 61.6 kg - Lab Result Diagrams: 05/15/22 16:20 05/15/22 16:20 - Procedures and Test Procedures and Tests throughout Hospitalization: Therapy Orders & Screens 05/15/22 17:25 ST Screen per Nursing Assess ONCE Comment: Protocol Order Physician Instructions: Greater than [address] Admission Screening Reason For Exam: Triggered on Admission Diagnosis: erosive gastritis/dehydration CVA/Dyshpagia/Aphasia: No Cognitive Deficits: No Dehydration/Nutrition Deficit: Yes Reflux: Yes Oral-Motor Difficulties: No Pneumonia: No Snf Resident: No Total Points: 8 Discharge Exam General Appearance: no apparent distress, alert Neurologic Exam: alert, oriented x 3, cooperative, normal mood/affect, nml cerebellar function, sensation nml, No motor deficits Eye Exam: PERRL, EOMI, eyes nml inspection Ears, Nose, Throat Exam: normal ENT inspection, pharynx normal, moist mucous membranes Neck Exam: normal inspection, non-tender, supple, full range of motion Respiratory Exam: normal breath sounds, lungs clear, No respiratory distress Cardiovascular Exam: regular rate/rhythm, normal heart sounds Gastrointestinal/Abdomen Exam: soft, No tenderness, No mass Pelvic Exam: deferred Rectal Exam: deferred Back Exam: normal inspection, normal range of motion, No CVA tenderness, No vertebral tenderness Extremity Exam: normal inspection, normal range of motion Skin Exam: normal color, warm, dry Final Diagnosis/Problem List - Final Discharge Diagnosis/Problem (1) Acute gastric erosion Current Visit: Yes Status: Resolved Code(s): K25.3 - ACUTE GASTRIC ULCER WITHOUT HEMORRHAGE OR PERFORATION (2) Gastric erosion determined by endoscopy Current Visit: Yes Status: Acute Code(s): K25.9 - GASTRIC ULCER, UNSP ACUTE OR CHRONIC, W/O HEMOR OR PERF - Discharge Discharge Date: 05/17/22 Disposition: Home, Self-Care Condition: Stable Prescriptions: New Sucralfate 1 gm [Carafate 1 GM] 1 g PO BID 30 Days #60 tablet Famotidine 20 mg [Pepcid 20 MG] 20 mg PO BID 30 Days #60 tablet PANTOPRAZOLE 40 mg Tablet [Protonix 40MG Tablet] 40 mg PO QAM 30 Days #30 tab Continue Lovastatin 10 mg PO DAILY Hydroxychloroquine Sulfate [Plaquenil] 200 mg PO DAILY Amlodipine Besylate [Norvasc] 5 mg PO BID Gabapentin [Neurontin ] 100 mg PO TID carvediloL [Coreg] 25 mg PO BID Omeprazole 40 mg PO DAILY ALPRAZolam 0.25 MG [xanAX 0.25 MG] 0.5 mg PO BID Tizanidine HCl 4 mg [Zanaflex 4 MG] 4 mg PO HS Psyllium Packet [Metamucil PACKET] 1 each PO DAILY #30 packet Dicyclomine HCl 20 mg [Bentyl 20 mg] 10 mg PO TID #30 tablet Instructions: Gastritis (DC), Sucralfate Additional Instructions: Eat a bland diet, and advance as tolerated Follow up with: BLUE DEVINE MD [Primary Care Provider] -
== END 2022-05-17 17:15 | disposition home or self-care (01) ==
LOC: MED SURG 15:52 → UNDODISOB 05-17 17:35
PROVIDERS: ADMIT General Practice; ATTEND General Practice
DX: K25.3 Acute gastric ulcer without hemorrhage or perforation (principal); K25.9 Gastric ulcer, unspecified as acute or chronic, without hemorrhage or perforation; E86.0 Dehydration; Z79.899 Other long term (current) drug therapy; Z20.828 Contact with and (suspected) exposure to other viral communicable diseases
CPT/HCPCS: 0241U; 36415; 80053; 85025; A9270-GY

== ENCOUNTER 2022-10-24 06:22 | Day surgery (SDC) | payer MEDICARE, OTHER ==
[~2022-10-24 06:22] MED LIST: Ak-Dilate OPHTHALMIC*** 1.065 ML, Cyclogyl 1% OPHTH SOL 1.065 ML, GATIFLOXACIN 0.5% OPH... OP ONE; BETADINE 5% OPHTHALMIC 30 ML OP ONE; Lactated Ringers 1,000 ML IV SCH; NON-FORMULARY ITEM OP ONE; TETRACAINE 0.5% STERI-UNIT SOL OP ONE; cefUROXime sodium 0.005 GM in Sodium Chloride Flush 30 ML*** 0.5 ML IJ ONE
[2022-10-24] MEDS ORDERED: Lactated Ringers 1,000 ML IV ONE (07:16)
[2022-10-24 07:17] VITALS: PULSE 60; RESP 18
[2022-10-24] MEDS ORDERED: Zofran 4 MG/2 ML VIAL IV PRN (08:00)
[2022-10-24] MEDS ORDERED: ACETAZOLAMIDE 250 MG TABLET PO ONE (08:00)
[2022-10-24] MEDS ORDERED: DIPRIVAN 200 MG/20 ML IV ONE (09:52)
[2022-10-24 10:14] VITALS: BP 147/71; TEMP 97.6; O2SAT 95
[2022-10-24] MEDS ORDERED: Epinephrine Preservative Free 1 MG/ML ONE (14:55)
== END 2022-10-24 10:24 | disposition home or self-care (01) ==
LOC: SDC 06:22
PROVIDERS: ATTEND Ophthalmology
DX: H25.812 Combined forms of age-related cataract, left eye (principal)
CPT/HCPCS: 93005; 99100; C1780; J0171; J2704; A9270-GY